=== PATIENT | female | born 1985 | race Caucasian/White ===

== ENCOUNTER → 2021-08-18 | Outpatient (CLI) | payer SELFPAY ==
[~2021-08-18] MED LIST: ADVIL PRN; AMOX500 PO; CEFP200 PO; HYDACE5 PO; HYDMOR2 PO; METPRE4DP PO; MULVITMINE PO; ONDA4ODT MM
[2021-08-18 12:38] LABS: Source, Urine Clean Catch
[2021-08-18 13:07] LABS: Appearance, Urine Clear (Clear); Bilirubin, Urine Neg (Neg); Color, Urine Yellow (P-Yellow); Glucose Qualitative, Urine Neg (Normal); Ketones, Urine Neg (Neg); Leukocyte Esterase, Urine 1+ (Neg); Nitrite, Urine Neg (Neg); Protein, Urine Neg (Neg); Urobilinogen, Urine NORM (Normal); pH, Urine 6.5 (5.0-8.0)
[2021-08-18 13:08] LABS: Bacteria Few /hpf; Blood, Urine 1+ (Neg); Squamous Epithelial Cells Mod /hpf (Few)
== END | disposition home or self-care (01) ==
LOC: LAB SHORT 10:54
PROVIDERS: Nurse Practitioner
DX: K58.1 Irritable bowel syndrome with constipation (principal); R53.83 Other fatigue; R30.0 Dysuria; Z71.84 Encounter for health counseling related to travel
CPT/HCPCS: 81001